=== PATIENT | male | born 1965 | race Caucasian/White ===

== ENCOUNTER 2025-01-21 10:50 | Emergency (ER) | payer OTHER, SELFPAY ==
[2025-01-21] VITALS (10 sets, daily range): BP systolic 146–217; BP diastolic 71–123; PULSE 71–84; RESP 15–19; TEMP 36.7–36.9; O2SAT 95–99; BMI 31.1
--- NOTE | 2025-01-21 11:43 | XR_ITS ---
Examination: AP chest single view TECHNIQUE: AP portable upright chest single view Date and time: January 21, 2025 1151 hours INDICATIONS: Chest pain beginning 2 days ago. FINDINGS: Normal heart size Minor scarring in the left lower lung zone No pneumonia or pulmonary edema Moderate osteopenia IMPRESSION: No active disease.
--- NOTE | 2025-01-21 11:43 | XR_ITS ---
Examination: Abdomen AP single view Technique: AP portable supine abdomen, single view Exam date and time: 2024 11:46 AM INDICATIONS: Constipation beginning 3 days ago. FINDINGS: Moderate to large amount stool throughout the colon No obstruction No free air IMPRESSION: Moderate to large amounts of stool throughout the entire colon
--- NOTE | 2025-01-21 11:44 | EKG_ITS ---
[facility] Test Date: 2025-01-21 Pat Name: RONALD PURCELL Department: Room: - Gender: Male [employer]iprap Worker: : 1965 Requested By: Candy Garcia Order Number: [id number] Reading MD: Candy Garcia Measurements Intervals [place] Rate: 78 P: 34 ID: [id number] QRS: 46 QRSD: 93 T: 48 QT: 376 QTc: 428 Interpretive Statements SINUS RHYTHM NONSPECIFIC T-WAVE ABNORMALITY Compared to ECG 04/04/2023 18:09:36 No significant changes /store/S0/[id number]/ecg/[id number].pdf
--- NOTE | 2025-01-21 11:45 | PD.EDWEAK ---
ED Weakness RME/HPI General Chief complaint: Weakness Stated complaint: WEAKNESS Time Seen by Provider: 01/21/25 11:23 Arrival date/time: 01/21/25 10:50 RME / HPI RME / HPI Narrative: 59-year-old male patient with significant history of hypertension, diabetes mellitus, stroke, with left-sided weakness, was brought in by ambulance for evaluation regarding generalized body weakness. Patient's been having worsening generalized body weakness for 1 week, severity mod. Also complaining of no bowel movement for 1 week. Patient was noted to be having elevated blood pressure, stopped taking his blood pressure medication for 6 months due to noncompliance with follow-up with PCP. Patient denies any chest pain denies any headache denies any abdominal pain. Patient is needing assistance for mobility and activity daily living. Related Data Home Medications ?Medication ?Instructions ?Recorded ?Confirmed atorvastatin 10 mg tablet (Lipitor) 10 mg PO HS #30 tabs 02/19/14 Metformin Hcl 500 mg PO BID ##60 01/11/16 aspirin 81 mg chewable tablet 81 mg PO QDAY ##0 01/11/16 carvedilol 12.5 mg tablet 12.5 mg PO BID ##60 01/11/16 clopidogrel 75 mg tablet 75 mg PO QDAY ##30 01/11/16 lisinopril 5 mg tablet 5 mg PO QDAY ##16 01/11/16 Allergies Allergy/AdvReac Type Severity Reaction Status Date / Time Bee Stings Allergy Unknown Uncoded 01/11/16 14:13 Review of Systems Review of Systems Narrative Review of Systems: Review of system reviewed and within normal limits except mentioned in HPI ED Exam Narrative Physical exam: VITAL SIGNS: Reviewed. GENERAL APPEARANCE: Alert and interactive, follows commands, no acute distress, HEAD AND FACE: Non-traumatic. ENT: PERRL, pink conjunctivitis, eyelid no trauma, Mucous membrane moist. NECK: Supple, nontender, no nuchal rigidity. CHEST: No tenderness, no crepitus, no paradoxical movement, no retractions. LUNGS: Clear, well ventilated, symmetric, no rales, no wheezing, no ronchi, no stridor, good breath sounds bilaterally. HEART: Regular rate, regular rhythm, no murmur, no gallops. ABDOMEN: Soft, positive bowel sounds, nondistended, no guarding, nontender, no rebound, no masses, RECTAL: Deferred. GENITAL: Deferred. NEUROLOGICAL: Gross motor function intact sensory function intact, Appropriate for age. MUSCULOSKELETAL: low back nontender, full range of motion. EXTREMITIES: Nontender, full range of motion of the right upper and lower extremity, weakness noted on the left upper and lower extremity, baseline SKIN: Color pink, dry, no rash, no lacerations, no abrasions, no contusions. LYMPHATICS: Deferred. Course Quality Measures none Orders Category Date Time Status EKG (ED ONLY) *Do not use* NOW Care 01/21/25 11:44 Completed Fleet [Enema Administration] ONCE Care 01/21/25 11:44 Active Referral Physical Therapy Stat Cons 01/21/25 12:58 Completed EKG (ED Only) Stat Exams 01/21/25 11:44 Draft KUB [XR abdomen 1V] Stat Exams 01/21/25 11:43 Completed XR chest 1V Stat Exams 01/21/25 11:43 Completed B-Type Natriuretic Peptide Stat Lab 01/21/25 12:45 Completed CBC Stat Lab 01/21/25 12:45 Completed Comprehensive Metabolic Panel Stat Lab 01/21/25 12:45 Completed Partial Thromboplastin Time Stat Lab 01/21/25 12:45 Completed Troponin I Stat Lab 01/21/25 12:45 Completed Urinalysis, C/S if Indicated Stat Lab 01/21/25 11:43 Ordered Magnesium Citrate Liqd [Citrate of Magnesia Liqd] Med 01/21/25 11:44 Discontinued 300 ml PO X1 ONE cloNIDine HCL [Catapres] Med 01/21/25 13:18 Discontinued 0.1 mg PO X1 ONE hydrALAZINE HCL [Apresoline] Med 01/21/25 12:22 Discontinued 50 mg PO X1 ONE Referral Staff Scientist NOW 01/21/25 12:28 Active Vital Signs Vital signs: Vital Signs Temperature 98.2 F 01/21/25 10:55 Pulse Rate 78 01/21/25 10:55 Respiratory Rate 18 01/21/25 10:55 Blood Pressure 217/109 H 01/21/25 10:55 Pulse Oximetry (%) 97 01/21/25 10:55 Oxygen Delivery Method Room Air 01/21/25 10:55 Weakness MDM Narrative MDM Narrative:: 59-year-old male patient with significant history of hypertension, diabetes mellitus, stroke, with left-sided weakness, was brought in by ambulance for evaluation regarding generalized body weakness. Patient's been having worsening generalized body weakness for 1 week, severity mod. Also complaining of no bowel movement for 1 week. Patient was noted to be having elevated blood pressure, stopped taking his blood pressure medication for 6 months due to noncompliance with follow-up with PCP. Patient denies any chest pain denies any headache denies any abdominal pain. Patient is needing assistance for mobility and activity daily living. Patient is clinically is needing SNF placement due to significant assistance with ambulation and ADLs. Patient lives alone. Laboratory workup all came back unremarkable. X-ray of the abdomen showed significant constipation. Chest x-ray showed no pneumonia infiltrates or abnormality at this time. EKG showed normal sinus rhythm, ventricular rate of 78 bpm, no ST segment elevation or depression noted Patient is medically cleared to go to SNF Patient got accepted to SNF Patient data External records reviewed:: None Clinical information provided by:: patient Social determinants that could affect healthcare access:: none Patient has the following chronic illnesses:: Diabetes, hypertension not taking medications How is presenting disease/condition affected by chronic disease/condition?: exacerbated by Evaluation data The following diagnostics were reviewed and interpreted by me:: lab results, radiology exam(s) and EKG tracing(s) Lab and/or radiology exams considered but not ordered:: None Interpretation Summary: See results MDM Medications / Prescriptions Medications or Prescriptions considered but not ordered:: None Medication administrations:: Medication Administration History Discontinued Medications Clonidine (Clonidine Hcl 0.1 Mg Tablet) 0.1 mg PO X1 ONE Stop: 01/21/25 13:19 Last Admin: 01/21/25 13:27 Dose: 0.1 mg Documented By: YOMI Hydralazine HCl (Hydralazine Hcl 25 Mg Tablet) 50 mg PO X1 ONE Stop: 01/21/25 12:23 Last Admin: 01/21/25 12:38 Dose: 50 mg Documented By: YOMI Magnesium Citrate (Magnesium Citrate 300 Ml Btl) 300 ml PO X1 ONE Stop: 01/21/25 11:45 Last Admin: 01/21/25 12:39 Dose: 300 ml Documented By: YOMI Magnesium citrate hydralazine, clonidine. Prior to placement patient blood pressure was noted to be 146/86 heart rate of 84. Consultations Consultation(s) initiated? (list below): No Diagnosis Weakness Differential Diagnosis: dehydration Most likely diagnosis given after review of the tests above:: Constipation, generalized weakness, patient needs assistance for ADL and ambulation Admission Indicated Admission indicated?: not indicated (Needs placement to SNF) Admission Request Was there a request for admission?: No Disposition Plan Disposition Plan: other (specify) (SNF placement) Discharge Plan Plan Patient Disposition: Xfer Skilled Nsg Fac (SNF) Discharge Disposition comment: Stable Prescriptions/Referrals Prescriptions/Med Rec: No Action atorvastatin [Lipitor] 10 MG tablet 10 mg PO HS Qty: 30 carvedilol 12.5 MG tablet 12.5 mg PO BID Qty: 60 clopidogrel 75 MG tablet 75 mg PO QDAY Qty: 30 aspirin 81 MG tablet,chewable 81 mg PO QDAY Qty: 0 lisinopril 5 MG tablet 5 mg PO QDAY Qty: 16 Metformin Hcl 500 MG tablet 500 mg PO BID Qty: 60 Referrals: Sreekanth Crockett MD [Primary Care Provider] - In 1 week Problem List Clinical Impression: Weakness generalized, History of stroke, Constipation Patient/Caregiver Discharge Instructions Discharge Activity: activity as tolerated Education Materials: ED Weakness (Uncertain Cause) Additional Instructions: Thank you for the opportunity for serving you today. You are stable for discharged SNF. You are advised to: Follow-up with your PCP in 1 to 2 days Return to ED for worsening of symptoms Increase oral fluids You may give MiraLAX as needed for constipation Print Language: Tamazight Stand Alone Forms: Shobha Award Info., Patient Portal Info Letter PA/SR. STRATEGIC SOURCING MANAGER Supervising Physician PA/SR. STRATEGIC SOURCING MANAGER Supervising Physician: MD Noe
--- NOTE | 2025-01-21 12:28 | PC.NURSE ---
PATIENT BIBA FROM HOME FOR FEELING DEPRESSED, NOT FEELING WELL AND FEELING WEAK. PATIENT DENIES CHEST PAIN, SHORTNESS OF BREATH. PATIENT IS ALERT AND ORIENTED. VITALS ARE STABLE BESIDES PATIENT HIGH BP. MICROSCOPIST ABREA AWARE. ORDERS FOR HYDRALAZINE 50MG PO ORDERED. PATIENT ASKING FOR FOOD, PATIENT AWARE HE WILL MOST LIKELY HAVE TO HAVE ENEMA ADMINISTERED. PATIENT IN AGREEMENT WITH PLAN. PATIENT AGREE TO TALK TO SOCIAL WORK TO GET MORE HELP AT HOME AND TO DISCUSS DEPRESSION. PATIENT DENIES SI AT THIS TIME.
[2025-01-21] MEDS: MAGNESIUM CITRATE 300 ML BTL PO (12:39)
[2025-01-21 12:52] LABS: Basophils # (Auto) 0.0 Thou/mm3 (0.0-0.2); Basophils % (Auto) 0 % (0-2.5); Eosinophils # (Auto) 0.1 Thou/mm3 (0.0-0.5); Eosinophils % (Auto) 2 % (0-10); Hematocrit 44.5 % (41.0-53.0); Hemoglobin 14.9 g/dL (13.5-16.0); Immature Granulocytes Auto 0.02 Thou/mm3 (0.00-0.00); Lymphocytes # (Auto) 1.1 Thou/mm3 (1.0-4.8); Lymphocytes % (Auto) 14 % (10-50); Mean Corpuscular HGB Conc 33.5 g/dl (31.0-37.0); Mean Corpuscular Hemoglobin 31.8 pg (25.0-35.0); Mean Corpuscular Volume 95 fL (80-100); Monocytes # (Auto) 0.7 Thou/mm3 (0.0-0.8); Monocytes % (Auto) 10 % (0-12); Neutrophils # (Auto) 5.5 Thou/mm3 (1.8-7.7); Neutrophils % (Auto) 74 % (37-80); Nucleated Red Blood Cell # 0.00 Thou/mm3 (0.00-0.00); Nucleated Red Blood Cell % 0 /100 WBC (0); Platelet Count 282 Thou/mm3 (140-440); RDW Standard Deviation 44.1 fL (35.1-43.9); Red Blood Count 4.68 Miln/mm3 (4.50-5.90); White Blood Count 7.4 Thou/mm3 (3.8-10.6)
[2025-01-21 13:11] LABS: Partial Thromboplastin Time 30.2 Seconds (22.0-36.0)
--- NOTE | 2025-01-21 13:11 | PC.CC ---
Addendum entered by Chayo Monge 01/21/25 16:33: 1632 BILINGUAL MEDICAL RECEPTIONIST obtained an ANALY from [employer] for transportation as patient does not have coverage and cannot cover cost. Addendum entered by Chayo Monge 01/21/25 16:14: [facility] reported they can accept patient. BILINGUAL MEDICAL RECEPTIONIST presented the acceptance to the patient. Anaya with [facility] reported she can come speak to patient. Anaya presented herself to the hospital spoke to patient. Patient is receptive to going to [facility]. BILINGUAL MEDICAL RECEPTIONIST, updated Ya with Ajay who reported she would start authorization. BILINGUAL MEDICAL RECEPTIONIST obtained authorization [id number]. BILINGUAL MEDICAL RECEPTIONIST to arrange transportation. Addendum entered by Chayo Monge 01/21/25 14:43: Patient reports he is feeling sad due to the strokes that he has had an knowing that he will need SNF placement. Patient denied past and current suicidal and homicidal ideations, visual and auditory hallucinations. Patient reports that once at the SNF with rehab services he is hoping he can get strong again and return home. Original Note: Patient is a 59 year-old male who presents to the hospital for weakness. Chayo OSWALD made [id number] contact with patient. BILINGUAL MEDICAL RECEPTIONIST introduced self, role, and reason for visit. Patient appeared alert and oriented to self, location, and situation. BILINGUAL MEDICAL RECEPTIONIST discussed limits of confidentiality. Patient was pleasant and engaged in initial assessment. Patient confirmed information on demographics and reports to living home alone. Patient reports his next of kin is his sister, Ana Quach . Patient reports he has been ambulating with a cane but has been struggling with generalized weakness since he had his stroke. Patient disclosed he has no help at home. BILINGUAL MEDICAL RECEPTIONIST observed the patient struggling with putting a straw into a juice box as he had limited mobility with one hand. Patient reports he has been struggling with completing his own ADLs. Per patient, upon discharge he would like to go to a SNF for rehab as he is struggling. financial services education consultant to send referral packet to SNF facilities and PASSR to be completed. PT eval was ordered by provider.
[2025-01-21 13:24] LABS: B-Type Natriuretic Peptide 52 pg/mL (0-100)
[2025-01-21 13:27] LABS: Alanine Aminotransferase 17 U/L (10-49); Albumin, Serum 3.8 gm/dL (3.4-4.8); Albumin/Globulin Ratio 1.5 (1.2-2.2); Alkaline Phosphatase 91 U/L (46-116); Anion Gap 9 (7-16); Aspartate Amino Transferase 21 U/L (0-34); BUN/Creatinine Ratio 10 Ratio (12-20); Bilirubin,Total 0.6 mg/dL (0.3-1.2); Blood Urea Nitrogen 8 mg/dL (9-23); Calcium 9.2 mg/dL (8.3-10.6); Calcium (Corrected) 9.4 mg/dL (8.5-10.1); Carbon Dioxide 26.3 mMol/L (20.0-31.0); Chloride 104 mMol/L (98-107); Creatinine (Component) 0.8 mg/dL (0.6-1.3); Estimated Creatinine Clearance 121.1 mL/min (>60); Globulin 2.6 gm/dL (2.3-3.5); Glucose 157 mg/dL (74-106); Osmolality,Calculated 278 (275-295); Potassium 4.0 mMol/L (3.4-5.1); Sodium 139 mMol/L (136-145); Total Protein 6.4 gm/dL (5.7-8.2); Troponin I < 0.020 ng/mL (0.0-0.045); eGFR > 60 See Note
--- NOTE | 2025-01-21 15:01 | PC.PT ---
PT eval complete. Please see PT eval for details.
--- NOTE | 2025-01-21 18:39 | PC.NURSE ---
Report called to [facility]. Report called to KYMBERLY Genao at facility. No further questions asked.
== END 2025-01-21 21:18 | disposition skilled nursing facility (03) ==
PROVIDERS: Nurse Practitioner Family; Emergency Provider Family Medicine; PCP Family Medicine
DX: R53.1 Weakness (principal); K59.00 Constipation, unspecified; E11.9 Type 2 diabetes mellitus without complications; I10 Essential (primary) hypertension; T46.4X6A Underdosing of angiotensin-converting-enzyme inhibitors, initial encounter; Z60.2 Problems related to living alone; Z86.73 Personal history of transient ischemic attack (TIA), and cerebral infarction without residual deficits
CPT/HCPCS: 36415; 71045; 74018; 80053; 81001; 83880; 84484; 85025; 85730; 93005; 99283; A9270